=== PATIENT | female | born 1995 | race Hispanic/Latino ===

== ENCOUNTER 2017-05-05 17:55 | Emergency (ER) | payer BC ==
[2017-05-05] MEDS ORDERED: RABAVERT RABIES VACCINE(PCEC) IM ONE (20:37)
[2017-05-05] MEDS ORDERED: hyperRAB S/D IM ONE (20:37)
[2017-05-05] MEDS ORDERED: MOTRIN PO ONE (20:38)
--- NOTE | 2017-05-05 20:48 | Emergency Department Report ---
HPI - General Chief Complaint: Animal Bite Time Seen by Provider: 05/05/17 20:23 - HPI HPI: 21-year-old female presents to ED complaining of dog bite while she was at work today. Patient states she has not been previously vaccinated for rabies. She denies fevers/chills/nausea/vomiting/abdominal pain/shortness of breath or any other problems ED Past Medical Hx - Past Medical History Previous Medical History?: No - Surgical History Past Surgical History?: No - Social History Smoking Status: Never Smoker Substance Use Type: Alcohol - Medications Home Medications: Home Medications Medication Instructions Recorded Confirmed Last Taken Type Amoxicillin/K Clav Tab [Augmentin 1 tab PO Q12HR #14 tab 05/05/17 Unknown Rx 875 mg] Ibuprofen [Motrin 800 MG tab] 800 mg PO Q8H #30 tablet 05/05/17 Unknown Rx ED Review of Systems ROS: Stated complaint: DOG BITE/LEFT HAND Other details as noted in HPI Constitutional: denies: chills, fever Eyes: denies: eye pain, eye discharge, vision change ENT: denies: ear pain, throat pain Respiratory: denies: cough, shortness of breath, wheezing Cardiovascular: denies: chest pain, palpitations Endocrine: no symptoms reported Gastrointestinal: denies: abdominal pain, nausea, diarrhea Genitourinary: denies: urgency, dysuria, discharge Musculoskeletal: denies: back pain, joint swelling, arthralgia Skin: denies: rash, lesions Neurological: denies: headache, weakness, paresthesias Psychiatric: denies: anxiety, depression Hematological/Lymphatic: denies: easy bleeding, easy bruising Physical Exam - Physical Exam Vital Signs: Vital Signs 05/05/17 18:17 Temperature 98.2 F Pulse Rate 68 Respiratory 16 Rate Blood Pressure 117/75 O2 Sat by Pulse 100 Oximetry Physical Exam: GENERAL: Alert and oriented x3, no apparent distress, Normal Gait, atraumatic. HEAD: Head is normocephalic and a-traumatic. LUNGS: Symetrical with respiration, No wheezing, no rales or crackles, CTAB. HEART: S1, S2 present, regular rate and rhythm without murmur, no rubs, no gallops. Non tender to palpation EXTREMITIES/MUSCULOSKELETAL: No cyanosis, clubbing, rash, lesions or edema. Full ROM bilaterally. Pedal Pulses 2+ bilaterally. SKIN: Warm and dry, mild bite of dictation on right middle finger proximal to the medial. Nail beds and intact. Capillary refill 2+, no active bleeding, no edema No lesions, No ulceration or induration present. ED Course Vital Signs 05/05/17 18:17 Temperature 98.2 F Pulse Rate 68 Respiratory 16 Rate Blood Pressure 117/75 O2 Sat by Pulse 100 Oximetry ED Medical Decision Making - Medical Decision Making 21-year-old female presents with dog bite ED course: Patient received RIG, rabies vaccine And Motrin for pain. Dog bite abrasion cleaned with saline flushes. Discussed with patient. Keep wound open and mildly covered while working outside discussed otherwise keep wound dry Discussed to use Neosporin ointment as needed. Discussed to return day 3, day 7 and 14 for the risks of the vaccination. Vital signs are stable she is in no acute distress She understands her instructions given. Critical care attestation.: If time is entered above; I have spent that time in minutes in the direct care of this critically ill patient, excluding procedure time. ED Disposition Clinical Impression: Dog bite of finger Qualifiers: Encounter type: initial encounter Qualified Code(s): S61.259A - Open bite of unspecified finger without damage to nail, initial encounter; W54.0XXA - Bitten by dog, initial encounter Disposition: DC-01 TO HOME OR SELFCARE Is pt being admited?: No Does the pt Need Aspirin: No Condition: Stable Instructions: Animal Bite (ED), Rabies Immune Globulin (Injection), Rabies Vaccine (Injection) Additional Instructions: Return in 3 days, 7 days, 14 days for the rest of vaccination scheduled Prescriptions: Amoxicillin/K Clav Tab [Augmentin 875 mg] 1 tab PO Q12HR #14 tab Ibuprofen [Motrin 800 MG tab] 800 mg PO Q8H #30 tablet Referrals: PRIMARY CARE, [Primary Care Provider] - 3-5 Days [facility] [Outside] - 3-5 Days [facility] [Outside] - 3-5 Days Forms: Work/School Release Form(ED) Time of Disposition: 21:09
[2017-05-05 23:11] VITALS: BP 106/71
== END 2017-05-05 23:12 | disposition home or self-care (01) ==
LOC: ED 17:55
DX: S61.252A Open bite of right middle finger without damage to nail, initial encounter (principal); W54.0XXA Bitten by dog, initial encounter; Y93.9 Activity, unspecified; Y92.9 Unspecified place or not applicable; Y99.9 Unspecified external cause status
CPT/HCPCS: 90375; 90471; 90675; 96372; 99282

== ENCOUNTER 2017-05-08 19:21 | Emergency (ER) | payer BC, OTHER ==
[2017-05-08 20:27] VITALS: BP 104/62
[2017-05-08] MEDS ORDERED: RABAVERT RABIES VACCINE(PCEC) IM ONE (21:00)
--- NOTE | 2017-05-08 21:30 | Emergency Department Report ---
ED General Adult HPI - General Chief complaint: Laceration/Recheck/Suture Stated complaint: RABIES VAC Time Seen by Provider: 05/08/17 21:07 Source: patient Mode of arrival: Ambulatory Limitations: No Limitations - History of Present Illness Initial comments: 21-year-old female presents for second shot and rabies vaccination series. Patient states that 3 days ago she was given initial rabies vaccine for a dog bite. Patient works and a veterinary office. Denies any fevers or chills. Patient is currently taking antibiotics. Patient was bitten and left distal ring finger. Visible healing abrasion to distal finger. No overt signs of infection. Patient denies any pus drainage any fevers or chills. Onset/Timin -: days(s) Severity scale (0 -10): 0 - Related Data Previous Rx's Medication Instructions Recorded Last Taken Type Amoxicillin/K Clav Tab [Augmentin 1 tab PO Q12HR #14 tab 05/05/17 Unknown Rx 875 mg] Ibuprofen [Motrin 800 MG tab] 800 mg PO Q8H #30 tablet 05/05/17 Unknown Rx Allergies Allergy/AdvReac Type Severity Reaction Status Date / Time No Known Allergies Allergy Verified 05/05/17 18:23 ED Review of Systems ROS: Stated complaint: RABIES VAC Other details as noted in HPI Constitutional: denies: chills, fever Eyes: denies: eye pain, eye discharge, vision change ENT: denies: ear pain, throat pain Respiratory: denies: cough, shortness of breath, wheezing Cardiovascular: denies: chest pain, palpitations Endocrine: no symptoms reported Gastrointestinal: denies: abdominal pain, nausea, diarrhea Genitourinary: denies: urgency, dysuria, discharge Musculoskeletal: denies: back pain, joint swelling, arthralgia Skin: denies: rash, lesions Neurological: denies: headache, weakness, paresthesias Psychiatric: denies: anxiety, depression Hematological/Lymphatic: denies: easy bleeding, easy bruising ED Past Medical Hx - Past Medical History Previous Medical History?: No - Surgical History Past Surgical History?: No - Social History Smoking Status: Never Smoker Substance Use Type: Alcohol - Medications Home Medications: Home Medications Medication Instructions Recorded Confirmed Last Taken Type Amoxicillin/K Clav Tab [Augmentin 1 tab PO Q12HR #14 tab 05/05/17 Unknown Rx 875 mg] Ibuprofen [Motrin 800 MG tab] 800 mg PO Q8H #30 tablet 05/05/17 Unknown Rx ED Physical Exam - General Limitations: No Limitations General appearance: alert, in no apparent distress - Head Head exam: Present: atraumatic, normocephalic - Eye Eye exam: Present: normal appearance, PERRL, EOMI - ENT ENT exam: Present: mucous membranes moist - Neck Neck exam: Present: normal inspection - Respiratory Respiratory exam: Present: normal lung sounds bilaterally. Absent: respiratory distress - Cardiovascular Cardiovascular Exam: Present: regular rate, normal rhythm. Absent: systolic murmur, diastolic murmur, rubs, gallop - GI/Abdominal GI/Abdominal exam: Present: soft, normal bowel sounds - Extremities Exam Extremities exam: Present: normal inspection - Expanded Upper Extremity Exam Left Shoulder Exam: Present: normal inspection, full ROM Upper Arm exam: Present: normal inspection, full ROM Elbow exam: Present: normal inspection, full ROM Forearm Wrist exam: Present: normal inspection, full ROM Hand Wrist exam: Present: normal inspection, abrasion Hand L/R Back: 1 - Abrasion here Neuro motor exam: Present: wrist extension intact, thumb opposition intact, thumb IP flexion intact, thumb adduction intact, fingers 2-5 abduction intact Vascular: Present: normal capillary refill - Back Exam Back exam: Present: normal inspection - Neurological Exam Neurological exam: Present: alert, oriented X3 - Psychiatric Psychiatric exam: Present: normal affect, normal mood - Skin Skin exam: Present: warm, dry, intact, normal color. Absent: rash ED Course Vital Signs 05/08/17 05/08/17 20:26 20:30 Temperature 98.4 F 98.4 F Pulse Rate 75 75 Respiratory 18 18 Rate Blood Pressure 104/62 Blood Pressure 104/62 [Right] O2 Sat by Pulse 98 98 Oximetry ED Medical Decision Making - Medical Decision Making A/P: Rabies prophylaxis 1-patient received a second dose of rabies vaccination today 2-patient has a schedule for her rabies vaccinations Critical care attestation.: If time is entered above; I have spent that time in minutes in the direct care of this critically ill patient, excluding procedure time. ED Disposition Clinical Impression: Rabies, need for prophylactic vaccination against Disposition: DC-01 TO HOME OR SELFCARE Is pt being admited?: No Does the pt Need Aspirin: No Condition: Stable Instructions: Rabies Vaccine (Injection) Additional Instructions: Rabies vaccine Schedule Day 3: May 08 Day 7: May 12 Day 14:J juana Referrals: RAMON GALVAN MD [Staff Physician] - 3-5 Days Time of Disposition: 21:30
== END 2017-05-08 21:30 | disposition home or self-care (01) ==
LOC: ED 19:21
DX: Z23 Encounter for immunization (principal)
CPT/HCPCS: 90471; 90675; 96372

== ENCOUNTER 2017-05-12 10:29 | Emergency (ER) | payer OTHER ==
[2017-05-12 11:00] VITALS: BP 128/47
[2017-05-12] MEDS ORDERED: RABAVERT RABIES VACCINE(PCEC) IM ONE (11:09)
--- NOTE | 2017-05-12 11:39 | Emergency Department Report ---
ED Recheck HPI - General Chief Complaint: Recheck/Abnormal Lab/Rx Stated Complaint: RABIE SHOT F/U Time Seen by Provider: 05/12/17 11:05 Source: patient Mode of arrival: Ambulatory Limitations: No Limitations - History of Present Illness Initial Comments: Patient here for her rabies vaccination. She was treated on 05/05/2017 for dog bite and given Augmentin and rabies vaccination initiated. Patient denies any pain and said the area is getting better. She still on Augmentin. Patient reports that she's having vaginal itchy and white discharge from taken antibiotic and she's had similar issues in the past. He reports no adverse reaction from previous rabies vaccine. Complaint: other (here for rabies vaccination) Onset/Timin -: days(s) Initial Visit For: animal bite Returns Today for: rabies shot Symptoms Since Prior Visit: no new symptoms, improved Associated Symptoms: other (but having vaginal discharge, white and clumpy from yeast infection secondary to take an antibiotic) Treatments Prior to Arrival: Given Antibiotics on, Given Pain Meds on - Related Data Previous Rx's Medication Instructions Recorded Last Taken Type Amoxicillin/K Clav Tab [Augmentin 1 tab PO Q12HR #14 tab 05/05/17 Unknown Rx 875 mg] Ibuprofen [Motrin 800 MG tab] 800 mg PO Q8H #30 tablet 05/05/17 Unknown Rx Fluconazole [Diflucan TAB] 100 mg PO QDAY #2 tablet 05/12/17 Unknown Rx Allergies Allergy/AdvReac Type Severity Reaction Status Date / Time No Known Allergies Allergy Verified 05/12/17 11:14 ED Review of Systems ROS: Stated complaint: RABIE SHOT F/U Other details as noted in HPI Comment: All other systems reviewed and negative Constitutional: denies: chills, fever Respiratory: no symptoms reported Cardiovascular: denies: chest pain, palpitations, edema, syncope Gastrointestinal: denies: abdominal pain, nausea, vomiting Genitourinary: discharge (patient with white discharge that itch and secondary to antibiotic) Musculoskeletal: denies: back pain, arthralgia Skin: other (dog bite to left ring finger healing) Neurological: denies: headache, weakness, numbness, paresthesias ED Past Medical Hx - Past Medical History Previous Medical History?: No - Surgical History Past Surgical History?: No - Family History Family history: no significant - Social History Smoking Status: Never Smoker Substance Use Type: None - Medications Home Medications: Home Medications Medication Instructions Recorded Confirmed Last Taken Type Amoxicillin/K Clav Tab [Augmentin 1 tab PO Q12HR #14 tab 05/05/17 Unknown Rx 875 mg] Ibuprofen [Motrin 800 MG tab] 800 mg PO Q8H #30 tablet 05/05/17 Unknown Rx Fluconazole [Diflucan TAB] 100 mg PO QDAY #2 tablet 05/12/17 Unknown Rx ED Physical Exam - General Limitations: No Limitations General appearance: alert, in no apparent distress - Head Head exam: Present: atraumatic, normocephalic, normal inspection - Eye Eye exam: Present: normal appearance, PERRL, EOMI Pupils: Present: normal accommodation - ENT ENT exam: Present: normal exam, normal orophraynx, mucous membranes moist - Neck Neck exam: Present: normal inspection, full ROM. Absent: tenderness, lymphadenopathy - Respiratory Respiratory exam: Present: normal lung sounds bilaterally. Absent: respiratory distress, chest wall tenderness - Cardiovascular Cardiovascular Exam: Present: regular rate, normal rhythm, normal heart sounds - GI/Abdominal GI/Abdominal exam: Present: soft, normal bowel sounds. Absent: distended, tenderness, guarding, rebound, rigid - Extremities Exam Extremities exam: Present: normal inspection, full ROM, normal capillary refill. Absent: tenderness, pedal edema, joint swelling, calf tenderness - Neurological Exam Neurological exam: Present: alert, oriented X3, normal gait, reflexes normal. Absent: motor sensory deficit - Psychiatric Psychiatric exam: Present: normal affect, normal mood - Skin Skin exam: Present: warm, dry, intact (dog bite to left ring finger healing well ). Absent: normal color ED Course Vital Signs 05/12/17 10:57 Temperature 98.3 F Pulse Rate 88 Respiratory 17 Rate Blood Pressure 128/47 O2 Sat by Pulse 98 Oximetry - Reevaluation(s) Reevaluation #1: 05/12/17 12:07 Patient given rabies vaccination and she has 1 more dose on 05/19/2017. No adverse reaction. ED Recheck MDM - Medical Decision Making ED course: She is status post dog bite on 05/05/2017 and was placed on Augmentin and started on rabies vaccine. Here for another dose of rabies vaccination which was given. She given RabAvert IM and emergency room without any adverse reaction. Dog bite to left finger is healing well. As any pain. Patient is requesting in medication for yeast infection. She said usually when she takes antibiotic she gets a yeast infection and reports white lumpy discharge with itching in her vaginal area. Patient discharged home in stable condition to return for rabies vaccination on 05/19/2019 and she was given prescription for Diflucan. Critical care attestation.: If time is entered above; I have spent that time in minutes in the direct care of this critically ill patient, excluding procedure time. ED Disposition Clinical Impression: Need for rabies vaccination, Yeast infection of the vagina Disposition: DC-01 TO HOME OR SELFCARE Is pt being admited?: No Does the pt Need Aspirin: No Condition: Stable Instructions: Vaginitis (ED), Rabies Vaccine (Injection), Animal Bite (ED) Additional Instructions: return on 07/20/2017 for Take Diflucan once daily 2 days for yeast infection Prescriptions: Fluconazole [Diflucan TAB] 100 mg PO QDAY #2 tablet Referrals: PRIMARY CARE, [Primary Care Provider] - 3-5 Days Forms: Work/School Release Form(ED)
== END 2017-05-12 12:18 | disposition home or self-care (01) ==
LOC: ED 10:29
DX: B37.3 Candidiasis of vulva and vagina (principal)
CPT/HCPCS: 90471; 90675; 99282

== ENCOUNTER 2017-05-19 17:47 | Emergency (ER) | payer OTHER ==
[2017-05-19] MEDS ORDERED: RABAVERT RABIES VACCINE(PCEC) IM ONE (20:06)
--- NOTE | 2017-05-19 20:11 | Emergency Department Report ---
ED Animal Bite HPI - General Chief Complaint: Animal Bite Stated Complaint: RABIES BOOSTER X 4 Time Seen by Provider: 05/19/17 20:03 Source: patient Mode of arrival: Ambulatory Limitations: No Limitations - History of Present Illness MD Complaint: animal bite Onset/Timin -: days(s) Location: other (hand left middle finger ) Left: Hand (middle finger healed ) Animal: dog Animal Control Notified: Yes Description: unknown animal, immunizations unknown Mechanism: bite Pain Description: sharp Severity scale (0 -10): 0 Context: animals fighting Associated Symptoms: none Treatments Prior to Arrival: other (wound head , vaccination # 4 of 4 ) - Related Data Patient Tetanus UTD: Yes Previous Rx's Medication Instructions Recorded Last Taken Type Amoxicillin/K Clav Tab [Augmentin 1 tab PO Q12HR #14 tab 05/05/17 Unknown Rx 875 mg] Ibuprofen [Motrin 800 MG tab] 800 mg PO Q8H #30 tablet 05/05/17 Unknown Rx Fluconazole [Diflucan TAB] 100 mg PO QDAY #2 tablet 05/12/17 Unknown Rx Allergies Allergy/AdvReac Type Severity Reaction Status Date / Time No Known Allergies Allergy Verified 05/12/17 11:14 ED Review of Systems ROS: Stated complaint: RABIES BOOSTER X 4 Other details as noted in HPI Constitutional: denies: chills, fever Eyes: denies: eye pain, eye discharge, vision change ENT: denies: ear pain, throat pain Respiratory: denies: cough, shortness of breath, wheezing Cardiovascular: denies: chest pain, palpitations Endocrine: no symptoms reported Gastrointestinal: denies: abdominal pain, nausea, diarrhea Genitourinary: denies: urgency, dysuria, discharge Musculoskeletal: denies: back pain, joint swelling, arthralgia Skin: other (abrasions left middle finger ) Neurological: denies: headache, weakness, paresthesias Psychiatric: denies: anxiety, depression Hematological/Lymphatic: denies: easy bleeding, easy bruising ED Past Medical Hx - Past Medical History Previous Medical History?: No - Surgical History Past Surgical History?: No - Social History Smoking Status: Never Smoker Substance Use Type: Alcohol - Medications Home Medications: Home Medications Medication Instructions Recorded Confirmed Last Taken Type Amoxicillin/K Clav Tab [Augmentin 1 tab PO Q12HR #14 tab 05/05/17 Unknown Rx 875 mg] Ibuprofen [Motrin 800 MG tab] 800 mg PO Q8H #30 tablet 05/05/17 Unknown Rx Fluconazole [Diflucan TAB] 100 mg PO QDAY #2 tablet 05/12/17 Unknown Rx ED Physical Exam - General Limitations: No Limitations General appearance: alert, in no apparent distress - Head Head exam: Present: atraumatic, normocephalic - Eye Eye exam: Present: normal appearance - ENT ENT exam: Present: mucous membranes moist - Neck Neck exam: Present: normal inspection - Respiratory Respiratory exam: Present: normal lung sounds bilaterally. Absent: respiratory distress - Cardiovascular Cardiovascular Exam: Present: regular rate, normal rhythm. Absent: systolic murmur, diastolic murmur, rubs, gallop - GI/Abdominal GI/Abdominal exam: Present: soft, normal bowel sounds - Rectal Rectal exam: Present: deferred - Extremities Exam Extremities exam: Present: normal inspection, full ROM, normal capillary refill. Absent: tenderness, pedal edema, joint swelling, calf tenderness - Expanded Upper Extremity Exam Left General: Present: other, normal inspection, abrasion Shoulder Exam: Present: normal inspection, full ROM Upper Arm exam: Present: normal inspection, full ROM Elbow exam: Present: normal inspection, full ROM Forearm Wrist exam: Present: normal inspection, full ROM Hand Wrist exam: Present: full ROM, abrasion. Absent: tenderness, swelling, laceration, ecchymosis, deformity, crepidus, dislocation, erythema, amputation, nail avulsion, subungual hematoma Neuro motor exam: Present: wrist extension intact, thumb opposition intact, thumb IP flexion intact, thumb adduction intact, fingers 2-5 abduction intact Neurosensory exam: Present: 2-point discrimination, radial nerve intact, ulnar nerve intact, median nerve intact Vascular: Present: normal capillary refill, radial pulse, brachial pulse, ulnar pulse. Absent: vascular compromise, Pallo, pulse deficit radial art, pulse deficit ulnar art, pulse deficit brachial art - Back Exam Back exam: Present: normal inspection, full ROM. Absent: tenderness, CVA tenderness (R), CVA tenderness (L), muscle spasm, paraspinal tenderness, vertebral tenderness, rash noted - Neurological Exam Neurological exam: Present: alert, oriented X3, CN II-XII intact, normal gait, reflexes normal. Absent: motor sensory deficit - Psychiatric Psychiatric exam: Present: normal affect - Skin Skin exam: Present: warm, dry, intact, normal color, abrasion (left middle finger dorsal side healed ). 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 ED Disposition Clinical Impression: Animal bite of finger Qualifiers: Encounter type: subsequent encounter Qualified Code(s): S61.259D - Open bite of unspecified finger without damage to nail, subsequent encounter Dog bite of finger Qualifiers: Encounter type: subsequent encounter Qualified Code(s): S61.259D - Open bite of unspecified finger without damage to nail, subsequent encounter; W54.0XXD - Bitten by dog, subsequent encounter Disposition: DC-01 TO HOME OR SELFCARE Is pt being admited?: No Does the pt Need Aspirin: No Condition: Good Instructions: Animal Bite (ED) Additional Instructions: take all medications as prescribed Forms: Work/School Release Form(ED) Time of Disposition: 20:13
[2017-05-19 21:17] VITALS: BP 107/76
== END 2017-05-19 21:14 | disposition home or self-care (01) ==
LOC: ED 17:47
DX: S61.253A Open bite of left middle finger without damage to nail, initial encounter (principal); W54.0XXA Bitten by dog, initial encounter; Y93.89 Activity, other specified; Y92.89 Other specified places as the place of occurrence of the external cause; Y99.8 Other external cause status
CPT/HCPCS: 90471; 90675; 99282